=== PATIENT | male | born 1985 ===

== ENCOUNTER 2017-08-25 03:05 | Inpatient (IN) | payer MEDICAID, OTHER ==
[2017-08-25 03:18] VITALS: BMI 26.6
[2017-08-25] MEDS ORDERED: Tdap Vaccine 0.5 ml Vial (10-64 yrs) IM ONE (03:25)
[2017-08-25] MEDS ORDERED: ceFAZolin 2 GM in Sodium Chloride 0.9% 100 ML IVPB STA (03:25)
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
[2017-08-25] MEDS ORDERED: Tetanus/Diphtheria Toxoids 0.5 ml Syringe IM ONE (03:45)
[2017-08-25] MEDS ORDERED: Iohexol 300 100 ML IJ ONE ×2 (03:49→21:07)
[2017-08-25 04:26] LABS: INR 0.9 (0.9-1.2); PARTIAL THROMBOPLASTIN TIME 31.2 Seconds (25.6-37.1); PROTHROMBIN TIME 10.1 Seconds (9.8-13.1)
[2017-08-25 05:07] LABS: BASO % 0.3 % (0.0-2.0); EOS # 0.1 K/uL (0.0-0.7); EOS % 1.9 % (0.0-4.0); HEMOGLOBIN 15.5 g/dL (12.0-18.0); LYMPH % 48.1 % (20.0-40.0); MEAN CELL VOLUME 89.3 fl (80.0-94.0); MEAN CORPUSCULAR HEMOGLOBIN 29.7 pg (27.0-31.0); MEAN CORPUSCULAR HGB CONC 33.3 g/dL (33.0-37.0); MEAN PLATELET VOLUME 11.1 fl (7.2-11.7); MONO # 0.4 K/uL (0.0-0.8); MONO % 5.7 % (0.0-10.0); NEUT # 2.8 K/uL (1.8-7.0); NRBC % 0.3 % (0.0-0.0); RBC 5.22 Mil/uL (4.40-5.90); RED CELL DISTRIBUTION WIDTH 13.3 % (11.5-14.5); WHITE BLOOD COUNT 6.3 K/uL (4.8-10.8)
[2017-08-25 05:13] LABS: ALB/GLOB RATIO 1.2 (1.0-2.1); ALBUMIN 4.5 g/dL (3.5-5.0); ALT/SGPT 38 U/L (21-72); AST/SGOT 27 U/L (17-59); BLOOD UREA NITROGEN 10 mg/dl (9-20); CALCIUM 8.8 mg/dL (8.4-10.2); GFR AFRICAN-AMERICAN > 60; GFR NON-AFRICAN AMERICAN > 60
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
[2017-08-25 09:50] LABS: BARBITURATES, UR NEGATIVE (NEGATIVE); BENZODIAZEPINES, UR NEGATIVE (NEGATIVE); OPIATES, UR NEGATIVE (NEGATIVE); PHENCYCLIDINE, UR NEGATIVE (NEGATIVE)
[2017-08-25] MEDS ORDERED: Sodium Chloride 0.9% 1,000 ML IV STA (13:29)
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
[2017-08-25 21:24] LABS: BASO % 0.1 % (0.0-2.0); EOS % 0.1 % (0.0-4.0); HEMOGLOBIN 14.6 g/dL (12.0-18.0); LYMPH % 9.2 % (20.0-40.0); MEAN CELL VOLUME 88.6 fl (80.0-94.0); MEAN CORPUSCULAR HEMOGLOBIN 29.5 pg (27.0-31.0); MEAN CORPUSCULAR HGB CONC 33.3 g/dL (33.0-37.0); MEAN PLATELET VOLUME 10.3 fl (7.2-11.7); MONO # 0.7 K/uL (0.0-0.8); MONO % 6.7 % (0.0-10.0); NEUT # 9.3 K/uL (1.8-7.0); NEUT % 83.9 % (50.0-75.0); PLATELET COUNT 149 K/uL (130-400); RBC 4.94 Mil/uL (4.40-5.90); RED CELL DISTRIBUTION WIDTH 13.4 % (11.5-14.5)
[2017-08-25 21:26] LABS: WHITE BLOOD COUNT 11.1 K/uL (4.8-10.8)
[2017-08-25 21:31] LABS: INR 1.2 (0.9-1.2); PROTHROMBIN TIME 13.1 Seconds (9.8-13.1)
[2017-08-25 21:32] LABS: PARTIAL THROMBOPLASTIN TIME 33.1 Seconds (25.6-37.1)
[2017-08-25 21:51] LABS: ALB/GLOB RATIO 1.2 (1.0-2.1); ALBUMIN 4.1 g/dL (3.5-5.0); ALT/SGPT 35 U/L (21-72); AST/SGOT 22 U/L (17-59); BLOOD UREA NITROGEN 9 mg/dl (9-20); CALCIUM 8.6 mg/dL (8.4-10.2); GFR AFRICAN-AMERICAN > 60; GFR NON-AFRICAN AMERICAN > 60; LIPASE 23 U/L (23-300)
[2017-08-25 22:04] LABS: BASOPHIL 1 % (0-2); EOSINOPHIL 1 % (0-7); LYMPHOCYTE 4 % (20-50); MONOCYTE 4 % (0-10); NEUTROPHIL 88 % (42-75); PLATELET ESTIMATE NORMAL (NORMAL); REACTIVE LYMPHOCYTES 2 % (0-0); TOTAL CELLS COUNTED 100
[2017-08-25 22:05] LABS: GIANT PLATELETS PRESENT; HYPOCHROMIC SLIGHT; LARGE PLATELETS PRESENT; STOMATOCYTES SLIGHT; TOXIC GRANULATION PRESENT
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
[2017-08-25] MEDS ORDERED: Piperacillin/Tazobact 3.375 GM in Sodium Chloride 0.9% 100 ML IVPB STA (23:12)
[2017-08-25] MEDS ORDERED: Piperacillin/Tazobact 3.375 gm Inj IVPB ONE (23:26)
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
[2017-08-26] MEDS ORDERED: Morphine 4 MG/ML VIAL IVP PRN ×2 (00:05→03:13)
[2017-08-26] MEDS ORDERED: Succinylcholine 200 mg/10 ml Inj IV ONE ×2 (00:31→01:48)
[2017-08-26] MEDS ORDERED: Phenylephrine 10 mg/ml Inj ONE ×2 (00:31→01:48)
[2017-08-26] MEDS ORDERED: Rocuronium 10 mg/ml (5 ml) ONE ×3 (00:31→02:23)
[2017-08-26] MEDS ORDERED: Etomidate 20 mg/10ml Inj IV ONE ×2 (00:31→01:48)
[2017-08-26] MEDS ORDERED: Bupivacaine HCl 0.25% PF (30 ml) Inj ONE (01:24)
[2017-08-26] MEDS ORDERED: Neostigmine 1:1000 (1 mg/ml) Inj ONE (01:24)
[2017-08-26] MEDS ORDERED: Lidocaine 4% (Laryng-O-Jet) Kit MM ONE ×2 (01:27→01:48)
[2017-08-26] MEDS ORDERED: Lactated Ringer's 1,000 ML IV ONE ×2 (01:27→01:50)
[2017-08-26] MEDS ORDERED: Midazolam 2 MG/2 ML VIAL ONE ×2 (01:29→01:48)
[2017-08-26] MEDS ORDERED: Lactated Ringer's 500 ML IV ONE (01:30)
[2017-08-26] MEDS ORDERED: Dexamethasone 4 mg/1 ml ONE (02:29)
--- NOTE | 2017-08-26 03:12 | PCM.ANESB5 ---
Transverse Abdominis Block - Transverse Abdominis Plane Date of Procedure: 08/26/17 Anesthesiologist: Faiza Pre-Procedure Diagnosis: Transverse colon laceration Procedure Performed: Transverse Abdominis Plane Nerve Block Left, Transverse Abdominis Plane Nerve Block Right - Procedure Transverse Abdominis Plane Nerve Block: The rectus sheath block procedure was explained to the patient that it is for post-operative pain management and would be performed after surgery. Consent was obtained prior to surgery after a thorough discussion with the patient regarding the benefits and possible complications of rectus sheath block. After the surgery had concluded and before the patient emerged from general anesthesia , time-out was held with the circulating nurse to re-confirm the appropriate block. With the patient in supine position, the ultrasound probe was placed transversely to the abdominal wall at the level of the midpoint of the rectus abdominus at the midpoint of the incision. The skin, subcutaneous tissue, fat, rectus muscle, posterior rectus fascia,and peritonium and bowel were identified. No vascular structures were visualzed on the screen, color doppler was used for verification. The general area of the block site was then prepped with Chloraprep. At this point, a # 21-gauge Stimuplex 4-inch needle was inserted posterior to and in plane with the ultrasound probe and directed medially . Needle was advanced under direct ultrasound visualization until it reached the plane between the rectus muscle and the posterior rectus fascia. No vessels were seen or penetrated along the path of the needle. After appropriate placement, 2mL of local anesthetic solution was injected. When the plane between the muscle and fascia was observed expanding in an ellipsoid way, the rest of the solution was slowly injected. A total of __30____ mL of ___0.25__ % __bupivicaine was used for this block. The needle was then removed and sterile dressing was applied. Similarly, the same procedure was performed on the other side using the same medications. The patient had stable vital signs throughout and had no untoward complications after emergence from general anesthesia in the recovery room.
[2017-08-26] MEDS ORDERED: Trimethobenzamide 200 mg/2 mL Inj IM ONE (03:14)
[2017-08-26] MEDS ORDERED: Lactated Ringer's 1,000 ML IV SCH (03:15)
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
--- NOTE | 2017-08-26 03:18 | PCM.SURG1 ---
Surgeon's Initial Post Op Note - Surgeon's Notes Surgeon: Dr. Kent Production Operator: Adam PGY1 Type of Anesthesia: General Endo Anesthesia Administered By: Dr. Kendall Pre-Operative Diagnosis: transverse colon perforation, free intraperitoneal air Operative Findings: see operative report Post-Operative Diagnosis: transverse colon perforation, free intraperitoneal air Operation Performed: exploratory laparotomy, repair of transverse colon perforation, partial omentectomy Specimen/Specimens Removed: omentum Estimated Blood Loss: EBL {In ML}: 15 Blood Products Given: N/A Drains Used: No Drains Post-Op Condition: Good Date of Surgery/Procedure: 08/26/17 Time of Surgery/Procedure: 01:30
[2017-08-26] MEDS: Piperacillin/Tazobact 3.375 GM in Sodium Chloride 0.9% 100 ML IVPB SCH ×4 (05:54→21:09)
--- NOTE | 2017-08-26 08:03 | CARD ---
APPROVED REPORT EKG Measurement Heart [id number] CT [id number] <Conclusion> Sinus tachycardia Otherwise normal ECG
--- NOTE | 2017-08-26 08:37 | CP.PCM.PCO ---
Physician Communication Note - Physician Communication Note Physician Communication Note: Post Op Check Additional Comments - Additional Comments Additional Comments: This pt was seen and examined this AM at bedside. He denies pain, reports he feels better this am. Denies nausea and vomiting.
[2017-08-26] MEDS: Lactated Ringer's 1,000 ML IV SCH ×2 (09:01→18:48)
--- NOTE | 2017-08-26 09:14 | RAD ---
HISTORY: r/o free air COMPARISON: No prior. FINDINGS: LUNGS: No active pulmonary disease. PLEURA: No significant pleural effusion identified, no pneumothorax apparent. CARDIOVASCULAR: Normal. OSSEOUS STRUCTURES: No significant abnormalities. VISUALIZED UPPER ABDOMEN: Lucency under the right hemidiaphragm suggests pneumoperitoneum. OTHER FINDINGS: None. IMPRESSION: Lucency under the right hemidiaphragm suggest pneumoperitoneum. No focal consolidation or pleural effusion
[2017-08-26 13:27] LABS: HEMOGLOBIN 13.3 g/dL (12.0-18.0); MEAN CELL VOLUME 88.7 fl (80.0-94.0); MEAN CORPUSCULAR HEMOGLOBIN 29.7 pg (27.0-31.0); MEAN CORPUSCULAR HGB CONC 33.5 g/dL (33.0-37.0); RBC 4.46 Mil/uL (4.40-5.90); RED CELL DISTRIBUTION WIDTH 13.4 % (11.5-14.5); WHITE BLOOD COUNT 8.6 K/uL (4.8-10.8)
[2017-08-26 13:41] LABS: ALB/GLOB RATIO 1.1 (1.0-2.1); ALBUMIN 3.4 g/dL (3.5-5.0); ALT/SGPT 36 U/L (21-72); AST/SGOT 28 U/L (17-59); BLOOD UREA NITROGEN 12 mg/dl (9-20); CALCIUM 8.6 mg/dL (8.4-10.2); GFR AFRICAN-AMERICAN > 60; GFR NON-AFRICAN AMERICAN > 60
[2017-08-26] MEDS ORDERED: Morphine 5 MG/ML SYRINGE IVP PRN (16:00)
[2017-08-26] MEDS: Enoxaparin 40 mg Syringe SC SCH (18:48)
[2017-08-27] MEDS: Piperacillin/Tazobact 3.375 GM in Sodium Chloride 0.9% 100 ML IVPB SCH ×4 (03:21→21:53)
[2017-08-27] MEDS: Lactated Ringer's 1,000 ML IV SCH ×3 (03:21→03:26)
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
[2017-08-27] MEDS: Enoxaparin 40 mg Syringe SC SCH ×2 (08:27)
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
[2017-08-28] MEDS: Piperacillin/Tazobact 3.375 GM in Sodium Chloride 0.9% 100 ML IVPB SCH ×2 (04:08→09:02)
[2017-08-28 07:58] VITALS: BP 125/82; PULSE 67; RESP 19; TEMP 97.9
[2017-08-28] MEDS: Enoxaparin 40 mg Syringe SC SCH (08:42)
[2017-08-28 13:08] VITALS: O2SAT 96
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
== END 2017-08-28 15:08 | disposition home or self-care (01) | DRG 331 ==
LOC: H.ER 03:05 → H.ERHOLD 08-26 00:02 → H.MEDSURG1 08-26 05:36
PROVIDERS: ADMIT Specialist; ATTEND Specialist
PROC: 3E0234Z Introduction of Serum, Toxoid and Vaccine into Muscle, Percutaneous Approach (ICD-10-PCS; 2017-08-25)
PROC: 3E0T3BZ Introduction of Anesthetic Agent into Peripheral Nerves and Plexi, Percutaneous Approach (ICD-10-PCS; 2017-08-26)
PROC: 3E0T33Z Introduction of Anti-inflammatory into Peripheral Nerves and Plexi, Percutaneous Approach (ICD-10-PCS; 2017-08-26)
PROC: 0DQL0ZZ Repair Transverse Colon, Open Approach (ICD-10-PCS; principal; 2017-08-26 01:00)
PROC: 0DBU0ZZ Excision of Omentum, Open Approach (ICD-10-PCS; 2017-08-26 01:00)
DX: S36.531A Laceration of transverse colon, initial encounter (principal); S31.139A Puncture wound of abdominal wall without foreign body, unspecified quadrant without penetration into peritoneal cavity, initial encounter; S09.90XA Unspecified injury of head, initial encounter; F10.129 Alcohol abuse with intoxication, unspecified; Y90.8 Blood alcohol level of 240 mg/100 ml or more; F17.210 Nicotine dependence, cigarettes, uncomplicated; Z23 Encounter for immunization; Z78.1 Physical restraint status; X99.1XXA Assault by knife, initial encounter; Y92.89 Other specified places as the place of occurrence of the external cause